=== PATIENT | female | born 1950 | race Two or more races ===

== ENCOUNTER 2016-10-02 18:37 | Emergency (ER) | payer OTHER ==
[2016-10-02 18:56] VITALS: BP 161/81; PULSE 69; TEMP 98.9; BMI 38.2
[2016-10-02] MEDS ORDERED: ALBUTEROL SO4 0.083% IH SOL 2.5 MG/3 ML VIAL.NEB. NEB ONE ×2 (19:27→19:28)
--- NOTE | 2016-10-02 19:27 | PDOC ---
History of Present Illness - General History Source: Patient Exam Limitations: No Limitations - History of Present Illness Initial Comments: 10/02/16 19:33 The patient is a 65 year old female with significant past medical history of asthma (no h/o of intubations and no recent h/o hospitalization), diabetes, hypertension, and parkinson who presents to the ED for acute asthma exacerbation prior to arrival. Patient reports she was at her [facility]Ds office for a routine check-up when she suddenly became short of breath with chest tightness. EMS was called immediately and patient was brought here to the ER. At time of evaluation, patient states she is feeling better. She also has complaints of a dry cough. The patient denies fever, chills, diaphoresis, chest pain, and palpitations. The patient denies abdominal pain, nausea, vomiting, and diarrhea. Allergies: NKDA Social History: No alcohol, tobacco, or drug use reported. Past Surgical History: None reported PCP: Dr. Madison Mortensen <Selena Olson - Last Filed: 10/02/16 19:33> - General History Source: Patient <GuyJamal meraz - Last Filed: 10/02/16 20:04> - General Chief Complaint: Respiratory Stated Complaint: RESPIRATORY Time Seen by Provider: 10/02/16 19:24 Past History <Selena Olson - Last Filed: 10/02/16 19:33> - Past Medical History Asthma: Yes Diabetes: Yes HTN: Yes Other medical history: PARKINSONS - Immunization History Immunization Up to Date: Yes - Psycho/Social/Smoking Cessation Hx Suicidal Ideation: No Smoking History: Never smoked Have you smoked in the past 12 months: No Information on smoking cessation initiated: No Hx Alcohol Use: No Drug/Substance Use Hx: No Substance Use Type: None <Jamal Kaufman - Last Filed: 10/02/16 20:04> - Past Medical History Allergies/Adverse Reactions: Allergies Allergy/AdvReac Type Severity Reaction Status Date / Time No Known Allergies Allergy Verified 10/02/16 18:56 Home Medications: Ambulatory Orders Unobtainable [Unobtainable] 10/02/16 Review of Systems - Review of Systems Able to Perform ROS?: Yes Comments:: 10/02/16 19:34 CONSTITUTIONAL: Absent: fever, no chills, no fatigue EYES: Absent: visual changes ENT: Absent: ear pain, no sore throat CARDIOVASCULAR: Absent: chest pain, no palpitations RESPIRATORY: +dry cough, SOB, chest tightness GI: Absent: abdominal pain, no nausea, no vomiting, no constipation, no diarrhea GENITOURINARY: Absent: dysuria, no frequency, no hematuria MUSCULOSKELETAL: Absent: back pain, no arthralgia, no myalgia SKIN: Absent: rash NEURO: Absent: headache <Selena Olson - Last Filed: 10/02/16 19:33> *Physical Exam - Vital Signs Last Vital Signs Temp Pulse Resp BP Pulse Ox 98.9 F 69 20 161/81 93 L 10/02/16 18:51 10/02/16 18:51 10/02/16 18:51 10/02/16 18:51 10/02/16 18:51 - Physical Exam Comments: 10/02/16 19:34 GENERAL: Well-appearing, well-nourished. No apparent distress. HEENT: Normocephalic, atraumatic. PERRL, EOM intact. CARDIOVASCULAR: Normal S1, S2. Regular rate and rhythm. PULMONARY: No evidence of respiratory distress. Decreased breath sounds bilaterally. No conversational dyspnea. No retractions. Lungs clear to auscultation bilaterally. No wheezing, rales or rhonchi. ABDOMEN: Soft, non-distended, non-tender. EXTREMITIES: Normal ROM in all four extremities. No gross deformities. SKIN: Warm, dry. No rash NEUROLOGICAL: No focal neurological deficits. <Selena Olson - Last Filed: 10/02/16 19:33> - Vital Signs Last Vital Signs Temp Pulse Resp BP Pulse Ox 98.9 F 69 20 161/81 93 L 10/02/16 18:51 10/02/16 18:51 10/02/16 18:51 10/02/16 18:51 10/02/16 18:51 <Jamal Kaufman - Last Filed: 10/02/16 20:04> Medical Decision Making - Medical Decision Making 10/02/16 20:03 Dr. Kaufman: The scribe's documentation has been prepared under my direction and personally reviewed by me in its entirery. I confirm that the note above accurately reflects all work, treatment, procedures, and medical decision making performed by me. <Jamal Kaufman - Last Filed: 10/02/16 20:04> *DC/Admit/Observation/Transfer - Attestations Scribe Attestion: 10/02/16 19:34 Documentation prepared by Selena Olson, acting as medical social consultant for Jamal Kaufman MD/DO. <Selena Olson - Last Filed: 10/02/16 19:33> - Discharge Dispostion Admit: No <Jamal Kaufman - Last Filed: 10/02/16 20:04> Diagnosis at time of Disposition: Asthma attack - Discharge Dispostion Disposition: HOME Condition at time of disposition: Improved - Referrals Referrals: Madison Mortensen MD [Primary Care Provider] - - Patient Instructions Printed Discharge Instructions: DI for Asthma -- Adult
== END 2016-10-02 20:24 | disposition home or self-care (01) ==
LOC: JER 18:37
PROC: 3E0F7GC Introduction of Other Therapeutic Substance into Respiratory Tract, Via Natural or Artificial Opening (ICD-10-PCS; principal; 2016-10-02)
DX: J45.901 Unspecified asthma with (acute) exacerbation (principal); I10 Essential (primary) hypertension; E11.9 Type 2 diabetes mellitus without complications; G20 Parkinson's disease
CPT/HCPCS: 94640; 99282-25